=== PATIENT | female | born 1980 | race Caucasian/White ===

== ENCOUNTER 2022-09-12 10:11 | Outpatient (CLI) | payer MEDICAID, SELFPAY ==
--- NOTE | 2022-09-12 | ECG_ITS ---
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 Interpretive Statements NAME OF STUDY: TREADMILL STRESS TEST INDICATION: Chest Pain PROCEDURE: At the baseline, the patient's blood pressure was 104/83 mm Hg with a heart rate of 70 bpm and oxygen saturation of 98%. The baseline electrocardiogram showed normal sinus rhythm, normal axis with normal ST-Ts. ??? The patient exercised for 6 minutes and 32 seconds on a [standard Micheal protocol]. Patient attained a maximum heart rate of 153 beats per minute( 86 % of the maximum predicted heart rate) with a blood pressure at the peak exercise of 210/114 mm Hg and oxygen saturation of 94%. The EKG at the peak exercise revealed sinus tachycardia with no significant ST-T wave changes. Patient did not have any chest pain or any significant cardiac arrhythmias with the exercise. ??? During the recovery phase, there were no new changes. Isolated PVC's noted in recovery. ??? Blood pressure at the end of the recovery phase was 139/67 mm Hg with a heart rate of 90 beats per minute and oxygen saturation of 97%. ??? CONCLUSION: 1. Normal EKG response to treadmill exercise. 2. No exercise-induced chest pain or cardiac arrhythmia. 3. Good exercise tolerance, attained a maximum of 10.2 METs. 4. Baseline normal blood pressure and hypertensive response to exercise. Electronically Signed On 09-17-2022 12:21:00 HAY CHOPPER by Nilda Tolentino M.D. [id number]
--- NOTE | 2022-09-12 10:15 | USCV_ITS ---
Amanda Suarez Age: 42 Gender: F : 1980 Exam Date: 09/12/2022 11:14 Ordering Phys: Sherry Baker MD ([email or web address]) Technologist: KAMALA Exam Location: [facility] [place] Indication: CHEST PAIN BP: 132 / 87 HR: 61 Rhythm: Sinus Technical Quality: Adequate MEASUREMENTS (Male / Female) Normal Values 2D ECHO LVOT Diameter 2.0 cm LV Ejection Fraction MOD 2C 59.1 % LV Ejection Fraction 2C AL 60.3 % LA Diameter 3.2 cm LA Width 3.5 cm LA Height 5.3 cm RA Width 3.4 cm RA Height 4.9 cm Aorta at Sinotubular Diameter 1.7 cm IVC Diameter 1.9 cm M-MODE Aortic Annulus Diameter 2.6 cm LA Ao Ratio MM 1.1 MV E Point Septal Separation 0.9 cm DOPPLER AV Peak Velocity 158.3 cm/s LVOT Peak Velocity 108.0 cm/s AV Area Cont Eq vti 2.2 cm squared AV Area Cont Eq pk 2.1 cm squared MV Peak Velocity 87.0 cm/s MV Area PHT 4.0 cm squared Mitral E to A Ratio 1.1 MV E' Velocity 53.5 cm/s Mitral E to MV E' Ratio 7.0 Mitral E to LV E' Lateral Ratio 6.3 Mitral E to LV E' Septal Ratio 8.0 TR Peak Velocity 238.9 cm/s TR Peak Gradient 22.8 mmHg TR Mean Velocity 195.2 cm/s TR Mean Gradient 16.1 mmHg TR Velocity Time Integral 78.1 cm TV Peak E Velocity 69.0 cm/s Right Atrial Pressure 3.0 mmHg Pulmonary Artery Systolic Pressu 25.8 mmHg PV Peak Velocity 108.0 cm/s RV Acceleration Time 0.2 s RV Ejection Time 0.4 s RV AcT/ET 0.5 FINDINGS Left Ventricle Left ventricle is normal in size. LV systolic function is normal with EF of 55-60%. No regional wall motion abnormalities are seen. Diastolic function is normal Right Ventricle Normal in size and function Right Atrium Normal in size Left Atrium Normal in size Mitral Valve Structurally normal mitral valve. Trace mitral regurgitation Aortic Valve Structurally normal aortic valve. No significant stenosis or regurgitation. Tricuspid Valve Mild tricuspid regurgitation. Insufficient TR jet to calculate RVSP Pulmonic Valve Not well visualized Pericardium Normal Aorta Normal in size IVC Appears to be normal CONCLUSIONS LV systolic function is normal with EF of 55-60% Diastolic function is normal Trace mitral regurgitation Mild tricuspid regurgitation No comparison studies are available. Josh Orr MD (Electronically Signed) Final Date: 12 September 2022 12:52 S
[2022-09-12 12:00] VITALS: BMI 35.7
[2022-09-12 12:49] VITALS: BP 139/67; PULSE 90
== END 2022-09-12 10:12 | disposition home or self-care (01) ==
LOC: CDL 10:19
PROVIDERS: PCP Nurse Practitioner Family; Visit Provider Internal Medicine Cardiovascular Disease
DX: R07.9 Chest pain, unspecified (principal); I08.1 Rheumatic disorders of both mitral and tricuspid valves
CPT/HCPCS: 93017; 93306

== ENCOUNTER → 2023-02-24 09:54 | Outpatient (BNVA) | payer MEDICAID, SELFPAY | PROVIDERS: PCP Nurse Practitioner Family; Visit Provider Internal Medicine Rheumatology | DX: M19.90 Unspecified osteoarthritis, unspecified site (principal); Z79.899 Other long term (current) drug therapy; Z11.59 Encounter for screening for other viral diseases; M45.6 Ankylosing spondylitis lumbar region; Z90.710 Acquired absence of both cervix and uterus; Z87.2 Personal history of diseases of the skin and subcutaneous tissue; Z71.85 Encounter for immunization safety counseling; L40.50 Arthropathic psoriasis, unspecified | CPT/HCPCS: 36415; 80076; 82565; 85025; 86200; 86480; 86704; 86803; 86812; 87340 ==

== ENCOUNTER → 2023-08-05 10:49 | Outpatient (BNVA) | payer MEDICAID, SELFPAY | PROVIDERS: PCP Nurse Practitioner Family; Visit Provider Internal Medicine Rheumatology | DX: Z79.899 Other long term (current) drug therapy (principal); L40.50 Arthropathic psoriasis, unspecified; Z90.710 Acquired absence of both cervix and uterus; Z87.2 Personal history of diseases of the skin and subcutaneous tissue; Z71.85 Encounter for immunization safety counseling | CPT/HCPCS: 36415; 80076; 82565; 85025; 86140 ==

== ENCOUNTER 2023-09-16 08:13 | Oncology outpatient (recurring) (ONCR) | payer MEDICAID, SELFPAY ==
--- NOTE | 2023-09-15 08:45 | PC.NURSE ---
Called pt regarding infusion tomorrow 09/16/23. Pt states she has not been on antibiotics in the last two weeks as well as no s/s of infection. Completed RHEO Infusion in worklist. CAREN
[2023-09-16] MEDS: sodium chloride 0.9% 250 ML 75 ML IV (09:08)
[2023-09-16] MEDS: acetaminophen 325 mg Tablet 650 MG PO (09:10)
[2023-09-16] MEDS: diphenhydrAMINE 50 mg/mL SDV 1mL 25 MG IVP (09:11)
[2023-09-16] MEDS: methylPREDNISolone sod succ 40 mg/mL INJ IVP (09:13)
[2023-09-16 09:55] VITALS: BP 115/74; PULSE 57; RESP 16; O2SAT 95
[2023-09-16 10:11] VITALS: BP 109/63; PULSE 63; RESP 16; O2SAT 95
[2023-09-16 10:27] VITALS: BP 113/73; PULSE 70; RESP 16; O2SAT 96
[2023-09-16 10:45] VITALS: BP 123/84; PULSE 71; RESP 16; O2SAT 97
[2023-09-16 11:30] VITALS: BP 123/73; PULSE 79; RESP 16; O2SAT 95
[2023-09-16 16:22] VITALS: BP 103/59; PULSE 78; RESP 16; TEMP 36.2; O2SAT 97
== END 2023-09-16 23:59 | disposition home or self-care (01) ==
PROVIDERS: PCP Nurse Practitioner Family; Visit Provider Internal Medicine Rheumatology
DX: L40.50 Arthropathic psoriasis, unspecified (principal)
CPT/HCPCS: 96375; 96413; 96415; A4222; J1200; J2920; J7050; Q5104

== ENCOUNTER 2024-02-19 13:47 | Outpatient (CLI) | payer MEDICAID, SELFPAY ==
--- NOTE | 2024-02-19 13:54 | XR_ITS ---
WS: [email or web address] XR hand RT min 3V* [id number] REASON FOR EXAM: L40.50 - Arthropathic psoriasis, unspecified FINDINGS: No acute fracture or focal bone lesion. No periosteal reaction. Joint spaces of the hand are intact and relatively well preserved. No bone erosion or periarticular periostitis. No soft tissue abnormality. XR/XR hand RT min 3V* [id number] IMPRESSION: No significant abnormality.
--- NOTE | 2024-02-19 13:54 | XR_ITS ---
WS: [email or web address] XR hand LT min 3V* [id number] REASON FOR EXAM: L40.50 - Arthropathic psoriasis, unspecified FINDINGS: No acute fracture or focal bone lesion. No periosteal reaction. No bone erosions or periarticular periostitis. No soft tissue abnormality. XR/XR hand LT min 3V* [id number] IMPRESSION: No significant abnormality.
--- NOTE | 2024-02-19 13:54 | XR_ITS ---
WS: [email or web address] XR knee RT 3V* [id number] REASON FOR EXAM: L40.50 - Arthropathic psoriasis, unspecified FINDINGS: No fracture or focal bone lesion. Medial knee joint space is intact and relatively well preserved. There is mild subchondral sclerosis and small marginal osteophytosis. There is mild narrowing of the lateral knee joint space with mild subchondral sclerosis. The patellofemoral joint space is intact with mild subchondral sclerosis of the patella. XR/XR knee RT 3V* [id number] IMPRESSION: Minimal/mild changes of osteoarthritis in the right knee.
--- NOTE | 2024-02-19 13:54 | XR_ITS ---
WS: [email or web address] XR knee LT 3V* [id number] REASON FOR EXAM: L40.50 - Arthropathic psoriasis, unspecified FINDINGS: Medial knee joint space is intact and relatively well preserved. There is mild subchondral sclerosis. The lateral knee joint space is intact and relatively well preserved. Minimal subchondral sclerosis. Patellofemoral joint space is intact. Mild subchondral sclerosis of the patella. No soft tissue abnormality. XR/XR knee LT 3V* [id number] IMPRESSION: Minimal osteoarthritis of the left knee.
== END 2024-02-19 13:48 | disposition home or self-care (01) ==
LOC: LAB 13:48 → RAD 13:51
PROVIDERS: PCP Nurse Practitioner Family; Visit Provider Internal Medicine Rheumatology
DX: L40.50 Arthropathic psoriasis, unspecified (principal); M22.8X2 Other disorders of patella, left knee; M22.8X1 Other disorders of patella, right knee; M25.761 Osteophyte, right knee
CPT/HCPCS: 73130; 73562

== ENCOUNTER → 2024-03-02 15:38 | Outpatient (BNVA) | payer MEDICAID, SELFPAY | PROVIDERS: PCP Nurse Practitioner Family; Visit Provider Internal Medicine Rheumatology | DX: Z79.899 Other long term (current) drug therapy (principal); L40.50 Arthropathic psoriasis, unspecified; L40.9 Psoriasis, unspecified; Z90.710 Acquired absence of both cervix and uterus; Z87.2 Personal history of diseases of the skin and subcutaneous tissue; Z71.85 Encounter for immunization safety counseling | CPT/HCPCS: 36415; 80076; 82565; 85025; 85651; 86140 ==

== ENCOUNTER → 2024-08-02 12:46 | Outpatient (BNVA) | payer MEDICAID, SELFPAY | PROVIDERS: PCP Nurse Practitioner Family; Visit Provider Internal Medicine Rheumatology | DX: Z79.899 Other long term (current) drug therapy (principal); L40.50 Arthropathic psoriasis, unspecified; R03.0 Elevated blood-pressure reading, without diagnosis of hypertension; Z90.710 Acquired absence of both cervix and uterus; Z87.2 Personal history of diseases of the skin and subcutaneous tissue; Z71.85 Encounter for immunization safety counseling | CPT/HCPCS: 36415; 80076; 82565; 85025; 85651; 86140 ==

== ENCOUNTER 2024-12-27 10:52 | Outpatient (CLI) | payer MEDICAID, SELFPAY ==
--- NOTE | 2024-12-27 11:02 | XRR_ITS ---
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 Views: 3 views. COMPARISON: CR XR knee LT 3V* [id number] 02/19/2024 1:58 PM FINDINGS: Bones/joints: There is normal anatomic alignment of the left knee. No evidence of a fracture or destructive bone lesion. There is minor, stable subchondral sclerosis in the medial tibial plateau suggesting mild osteoarthritic change. No evidence of a left knee effusion. No change from the prior study. Soft tissues: Normal. XR/XR knee LT 3V* [id number] IMPRESSION: Stable minimal osteoarthritis of the left knee. No acute abnormality identified.
--- NOTE | 2024-12-27 11:02 | XRR_ITS ---
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 Views: 3 views. COMPARISON: CR XR knee RT 3V* [id number] 02/19/2024 1:58 PM FINDINGS: Bones/joints: Minor subchondral sclerosis along the medial tibial plateau. No fracture or destructive bone lesion. No evidence of a right knee effusion. Soft tissues: Normal. XR/XR knee RT 3V* [id number] IMPRESSION: No acute right knee abnormality. No change in the appearance of the right knee when compared to the prior study.
--- NOTE | 2024-12-27 11:02 | XRR_ITS ---
PROCEDURE INFORMATION: Exam: XR Cervical Spine Exam date and time: 12/27/2024 11:22 AM Age: 44 years old Clinical indication: Neck pain; Pain in neck that runs down neck and arms xfew months no specific injury, HX of osteoarthritis in knee checkup; Additional info: Z79.899 - other jail (current) drug therapy TECHNIQUE: Imaging protocol: Radiologic exam of the cervical spine. Views: 2 or 3 views. COMPARISON: No relevant prior studies available. FINDINGS: Bones/joints: Normal. No acute fracture. Normal alignment. No significant degenerative disc disease appreciated by plain radiographs. Soft tissues: Unremarkable. XR/XR cervical spine 3V* [id number] IMPRESSION: No acute findings.
[2024-12-27 11:28] LABS: Basophils % 0.5 %; Eosinophils # 0.3 10^3/uL (0.0-0.8); Eosinophils % 4.6 %; Hematocrit 43.2 % (36-47); Lymphocytes % 33.7 %; Mean Corpuscular Volume 94.1 fl (85-98); Mean Platelet Volume 11.5 fL (7.4-10.4); Monocytes # 0.6 10^3/uL (0.2-0.9); Neutrophils # 2.89 10^3/uL (1.8-7.7); Neutrophils % 49.9 %; Nucleated Red Blood Cells % 0 %; Platelet Count 228 10^3/cmm (157-399); Red Blood Count 4.59 10^6/uL (3.85-5.65); Red Cell Distribution Width 14.5 % (12.1-15.1); White Blood Count 5.81 10^3/uL (3.29-11.43)
[2024-12-27 11:31] LABS: Erythrocyte Sedimentation Rate 16 mm/hr (0-15)
[2024-12-27 11:45] LABS: Alanine Aminotransferase 17 U/L (0-33); Albumin Level 4.2 g/dL (3.5-5.2); Alkaline Phosphatase 74 U/L (35-105); Aspartate Amino Transferase 14 U/L (0-32); C Reactive Protein 7.8 mg/L (0.0-4.9); Globulin 2.9 g/dL (1.3-4.6); Glomerular Filtration Rate 108.1 mL/min (90-130); Total Bilirubin 0.2 mg/dL (0.15-1.2); Total Protein 7.1 g/dL (6.6-8.7)
== END 2024-12-27 10:53 | disposition home or self-care (01) ==
PROVIDERS: PCP Nurse Practitioner Family; Visit Provider Internal Medicine Rheumatology
DX: Z79.899 Other long term (current) drug therapy (principal); M19.90 Unspecified osteoarthritis, unspecified site; L40.50 Arthropathic psoriasis, unspecified
CPT/HCPCS: 72040; 73562; 80076; 82565; 85025; 85651; 86140

== ENCOUNTER 2025-07-19 11:18 | Outpatient (CLI) | payer MEDICAID, SELFPAY ==
--- NOTE | 2025-07-19 11:20 | MM_ITS ---
WS: [id number] BILATERAL 3D TOMOSYNTHESIS DIGITAL SCREENING MAMMOGRAPHY WITH CAD CLINICAL INFORMATION: SCREENING HISTORY: Screening mammogram. No current complaints. COMPARISON: New baseline TECHNIQUE: Bilateral CC and MLO views. FINDINGS: Scattered fibroglandular densities bilaterally. No suspicious focal mass, asymmetry, calcifications, or architectural distortion. No evidence of malignancy. Vascular calcification. A few incidental punctate calcifications. MM/MM scr tomosynthesis [id number] IMPRESSION: DENSITY: There are scattered areas of fibroglandular density. BI-RADS: 2 - Benign. FOLLOW UP: 1 Year Follow-up Recommend return to annual screening mammography.
== END 2025-07-19 11:19 | disposition home or self-care (01) ==
LOC: MOBLMAM 11:20
PROVIDERS: PCP Nurse Practitioner Family; Visit Provider Nurse Practitioner Family
DX: Z12.31 Encounter for screening mammogram for malignant neoplasm of breast (principal); R92.323 Mammographic fibroglandular density, bilateral breasts; R92.1 Mammographic calcification found on diagnostic imaging of breast
CPT/HCPCS: 77063; 77067

== ENCOUNTER 2025-07-31 08:46 | Outpatient (CLI) | payer MEDICAID, SELFPAY ==
[2025-07-31 09:49] LABS: Hematocrit 43.2 % (36-47); Hemoglobin 14.40 g/dL (11.27-16.99); Mean Corpuscular HGB Conc 33.3 g/dL (30-55); Mean Corpuscular Hemoglobin 30.5 pg (27-33); Mean Corpuscular Volume 91.5 fl (85-98); Nucleated Red Blood Cells % 0 %; Platelet Count 248 10^3/cmm (157-399); Red Blood Count 4.72 10^6/uL (3.85-5.65); White Blood Count 6.84 10^3/uL (3.29-11.43)
[2025-07-31 10:23] LABS: Alanine Aminotransferase 24 U/L (0-33); Albumin Level 4.2 g/dL (3.5-5.2); Alkaline Phosphatase 72 U/L (35-105); Aspartate Amino Transferase 18 U/L (0-32); Globulin 3.0 g/dL (1.3-4.6); Total Protein 7.2 g/dL (6.6-8.7)
== END 2025-07-31 08:47 | disposition home or self-care (01) ==
LOC: LAB 08:47
PROVIDERS: PCP Nurse Practitioner Family; Visit Provider Internal Medicine Rheumatology
DX: L40.50 Arthropathic psoriasis, unspecified (principal); Z79.899 Other long term (current) drug therapy; Z71.85 Encounter for immunization safety counseling
CPT/HCPCS: 36415; 80076; 82565; 85025; 85651; 86140; 86480